=== PATIENT | female | born 1985 | race Caucasian/White ===

== ENCOUNTER 2023-04-01 12:11 | Emergency (ER) | payer OTHER, SELFPAY ==
[2023-04-01] VITALS (17 sets, daily range): BP systolic 61–116; BP diastolic 44–79; PULSE 75–100; BMI 29.2
--- NOTE | 2023-04-01 12:24 | ED.GENMED ---
History of Present Illness
<Neva Chan PA-C - Last Filed: 04/01/23 18:44>
General
Chief Complaint: Dizziness
Source: patient
Exam Limitations: none
Time Seen by Provider: 04/01/23 12:24
Nursing documentation reviewed up to this point in time: agreed with
History of Present Illness
History of Present Illness:
This is a 37-year-old female with past medical history of Palmer's palsy, opioid use disorder, serotonin syndrome, anxiety/depression who presents emergency department today with 2 episodes of dizziness. Currently, patient feels well and denies
dizziness, nausea, vomiting, headache, visual changes. She states that yesterday, she had an episode of dizziness when she was walking to class today and felt a bit faint and started to have decreased hearing when she fell forward and caught
herself and subsequently went to go sit down and felt better. The rest of the day she felt okay. Today, she was having a meeting with her counselor when she had another episode of dizziness and lightheadedness, and subsequently ate some crackers
and her symptoms improved. Patient counselor was concerned because she noticed that patient was repeating a lot of words so they subsequently called EMS.
Past History
<Neva Chan PA-C - Last Filed: 04/01/23 18:44>
Past History
Patient has exhibited threatening behavior?: No
Review of Systems
<Neva Chan PA-C - Last Filed: 04/01/23 18:44>
Review of Systems
All Other Systems: ROS reviewed and negative except as documented in HPI and ROS
Phy Exam
<Neva Chan PA-C - Last Filed: 04/01/23 18:44>
Physical Exam
Physical Exam:
General:Patient is well-appearing in no acute distress
Skin: Warm and dry, no rashes or lesions
HEENT: Eyes-- No nystagmus
Cardiac: Regular rate and rhythm, no murmurs
Pulm: Normal respiratory effort, no wheezes rales or rhonchi
Neurological: Patient is alert and oriented x 3. Patient does have left-sided facial droop which is her baseline with the Palmer's palsy. Cranial nerves II through XII intact. No involuntary movements. No new focal neurologic deficits.
Zoktnh-yy-[id number] testing, ydrt-[id number]-[id number] testing intact
Course
<Neva Chan PA-C - Last Filed: 04/01/23 18:44>
Orders/Labs/Results
Orders:
Orders
04/01/23 12:36
Test Result ONCE
04/01/23 12:38
Complete Blood Count/With Diff Urgent
04/01/23 12:43
Orthostatic VS- Treatment ONCE
04/01/23 12:56
0.9% Sodium Chloride 1000 ml [Nss] 1,000 ml IV BOLUS
04/01/23 13:10
Comprehensive Metabolic Panel Urgent
HCG, Serum Qualitative Screen Urgent
Abnormal Lab Results
04/01/23 04/01/23
12:38 13:10
RBC 3.95 L 10^6/uL
(4.20-5.40)
Hct 36.1 L %
(37.0-47.0)
MCH 31.6 H pg
(27.0-31.0)
Sodium 134 L mmol/L
(135-145)
Glucose 124 H mg/dl
(70-99)
Total Protein 6.2 L g/dl
(6.3-8.2)
04/01/23 12:38
04/01/23 13:10
Vital Signs
Initial and Last Documented VS:
Initial Vital Signs
Temp Pulse Resp BP Pulse Ox
97.9 F 87 17 85/52 95
04/01/23 12:14 04/01/23 12:14 04/01/23 12:14 04/01/23 12:14 04/01/23 12:14
Last Documented Vital Signs
Temp Pulse Resp BP Pulse Ox
97.9 F 71 15 100/65 96
04/01/23 12:14 04/01/23 16:31 04/01/23 16:31 04/01/23 16:30 04/01/23 15:46
je;Fermin Nava, - Last Filed: 04/01/23 19:41>
Orders/Labs/Results
Orders:
Orders
04/01/23 12:36
Test Result ONCE
04/01/23 12:38
Complete Blood Count/With Diff Urgent
04/01/23 12:43
Orthostatic VS- Treatment ONCE
04/01/23 12:56
0.9% Sodium Chloride 1000 ml [Nss] 1,000 ml IV BOLUS
04/01/23 13:10
Comprehensive Metabolic Panel Urgent
HCG, Serum Qualitative Screen Urgent
Abnormal Lab Results
04/01/23 04/01/23
12:38 13:10
RBC 3.95 L 10^6/uL
(4.20-5.40)
Hct 36.1 L %
(37.0-47.0)
MCH 31.6 H pg
(27.0-31.0)
Sodium 134 L mmol/L
(135-145)
Glucose 124 H mg/dl
(70-99)
Total Protein 6.2 L g/dl
(6.3-8.2)
04/01/23 12:38
04/01/23 13:10
Vital Signs
Initial and Last Documented VS:
Initial Vital Signs
Temp Pulse Resp BP Pulse Ox
97.9 F 87 17 85/52 95
04/01/23 12:14 04/01/23 12:14 04/01/23 12:14 04/01/23 12:14 04/01/23 12:14
Last Documented Vital Signs
Temp Pulse Resp BP Pulse Ox
97.9 F 71 15 100/65 96
04/01/23 12:14 04/01/23 16:31 04/01/23 16:31 04/01/23 16:30 04/01/23 15:46
<Neva Chan PA-C - Last Filed: 04/01/23 18:44>
MDM/Problems Addressed
Differential Diagnosis Includes:
Differentials include hypertension, hyponatremia, hypoglycemia, Suboxone side effects
MDM/Problems Addressed:
Dizziness
Chronic conditions affecting care:
Anxiety, depression, history of opioid use disorder
Acute Exacerbation and/or Progression of Chronic Illness:
n/a
<Neva Chan PA-C - Last Filed: 04/01/23 18:44>
*Pulse Oximetry
Patient hypoxic: no
*Critical Care Note
Total Time (30-74mins, 75-104mins- exclusive of procedures): Not Applicable
Data Reviewed
Review of Other/Old Records Reveals: Records (No previous records to review)
Prescriptions/Medications Considered But Not Given:
n/a
Further Testing Considered But Not Given:
N/A
<Neva Chan PA-C - Last Filed: 04/01/23 18:44>
Patient Management
Escalation/DeEscalation of care consider admission/obs:
This is a 37-year-old female with past medical history of opioid use disorder on Suboxone, anxiety, depression who presents today with concerns of 2 episodes of dizziness and presyncopal symptoms that occurred once today and once yesterday. Patient
states that during these events, she had to sit down and eat something eventually felt better. She had a appointment with her counselor who knows that patient was repeating many words and called EMS to send her to the emergency department. On
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 Patient's blood pressure upon presentation to the ED was 85/52. Patient states that she does feel occasionally dizzy when she stands.
Her orthostatics upon's standing, her heart rate increased and her blood pressure dropped by 20 mg of mercury. We started patient on IV fluids. Upon reassessment, her blood pressure increased to 100/65 patient states that she feels well and has
had no further episodes of dizziness. Currently feel that her episodes of dizziness are a result of her hypotension, likely from the use of Suboxone. I am not concerned for a cerebrovascular event. Advised patient to follow-up with her primary
care provider.
<Neva Chan PA-C - Last Filed: 04/01/23 18:44>
Update Note
Update Note:
2:10 pm--upon reevaluation, patient reports feeling well and improvement to her symptoms, will finish IV fluids and reassess
4:15 PM�patient's IV fluids were finished, patient states that she has not had any additional dizziness and patient states that she feels well.
ED Attending Note
<Neva Chan PA-C - Last Filed: 04/01/23 18:44>
-
Portions of this chart may have been created with voice recognition software.� Occasional wrong word or��sound alike� substitutions may have occurred due to the inherent limitations of voice recognition software.
<Fermin Nava DO - Last Filed: 04/01/23 19:41>
ED Attending Note
Patient seen and examined by attending physician: Yes
I performed the substantive portion of visit, reviewed & personally made and approve the management plan that is documented in note by myself or ERIK.: Yes
ED Attending Note:
I agree with hopemarylin note
Patient brought to the emergency room for evaluation of dizziness. Patient also seemed confused and had some repetitive speech during a therapy session.
Patient denies any headache. Denies any focal weakness numbness or tingling. Watching 'Game of [employer]Spot[employer]' on her phone at the time of my evaluation. Admits not drinking fluids or water very often
General: Awake, Alert, Oriented X3. No acute distress.
Vitals: Hypotensive
Head: Atraumatic
Eyes: Pupils equal, EOMI
Throat: Airway intact, no exudates
Neck: Trachea midline
Lungs: Clear and equal b/l
Heart: Regular rate, no murmurs
Abd: Soft, Nontender, No pulsatile mass
Neuro: Cranial nerves intact, muscle strength equal bilaterally, cerebellar exam normal
Skin: Warm, dry, no rash
Extremities: pulses equal b/l, no edema
Pt feeling better after ivf, no longer dizzy
Discharge Plan
Departure
Patient Disposition: Home (Routine Discharge)
Date of Disposition: 04/01/23
Time of Disposition: 16:29
Patient with high blood pressure during this ER visit?: No
Condition: Good
Discharge Problem:
Dizziness
Instructions: Low Blood Pressure (DC), Dizziness
Referrals:
PRIVATE,PHYSICIAN [Family Provider] -
Activity Restrictions/Additional Instructions:
Please follow-up with your primary care provider this week.
Please return emergency department should you experience repetitive difficulties with your speech, confusion, lightheadedness, syncopal episodes, worsening of your symptoms, or any other concerns.
Interventions
Interventions:
*Risk Screen - Suicide Last Done: 04/01/23 17:13
*General Assessment Last Done: 04/01/23 12:32
*Neglect/Abuse Screening Last Done: 04/01/23 12:32
ED- Fall Risk Assessment Last Done: 04/01/23 12:32
*ED COVID-19 Vaccine History Last Done: 04/01/23 12:32
*Nursing Disposition Last Done: 04/01/23 17:13
ED- Neurological Assessment Last Done: 04/01/23 12:32
ED- Cardiac Assessment Last Done: 04/01/23 12:32
ED Swallowing Screen Last Done: 04/01/23 14:13
Discharge Date and Time
Discharge Date/Time: 04/01/23 17:14
[2023-04-01 12:49] LABS: % Basophils 0.5 % (0-2); % Eosinophils 3.9 % (0-6); % Immature Granulocytes 0.3 % (0-0.5); % Lymphocytes 32.2 % (20.5-51.1); % Monocytes 6.9 % (1.7-9.3); % Neutrophils 56.2 % (42.2-75.2); Absolute Eosinophils 0.3 10^3/uL (0-0.7); Absolute Lymphocytes 2.4 10^3/uL (1.2-3.4); Absolute Monocytes 0.5 10^3/uL (0.1-0.6); Absolute Neutrophils 4.1 10^3/uL (1.4-6.5); Hematocrit 36.1 % (37.0-47.0); Hemoglobin 12.5 g/dL (12.0-16.0); Mean Corp Hgb Conc. 34.6 g/dL (33.0-37.0); Mean Corpuscular Hgb 31.6 pg (27.0-31.0); Mean Corpuscular Volume 91.4 fL (81.0-99.0); Mean Platelet Volume 9.1 fL (7.4-10.4); Nucleated Red Blood Cells % 0 %; Platelet Count 275 10^3/uL (130-400); Red Blood Cell Count 3.95 10^6/uL (4.20-5.40); Red Cell Dist. Width 12.3 % (11.5-14.5); White Blood Cell Count 7.4 10^3/uL (4.8-10.8)
[2023-04-01] MEDS: NSS 1000 IV (13:11)
[2023-04-01 13:29] LABS: HCG, Serum Qualitative Screen Negative
[2023-04-01 13:33] LABS: ALT (SGPT) 20 U/L (0-35); AST (SGOT) 31 U/L (14-36); Albumin 3.6 g/dl (3.5-5.0); Alkaline Phosphatase 85 U/L (38-126); Blood Urea Nitrogen 8 mg/dl (7-17); Calcium 8.5 mg/dl (8.4-10.2); Carbon Dioxide 26 mmol/L (22-30); Chloride 104 mmol/L (98-107); Estimated Creatinine Clearance > 125 ml/min; Glucose 124 mg/dl (70-99); Potassium 3.8 mmol/L (3.5-5.1); Sodium 134 mmol/L (135-145); Total Bilirubin 0.4 mg/dl (0.2-1.3); Total Protein 6.2 g/dl (6.3-8.2); eGFR > 60.00
== END 2023-04-01 17:14 | disposition home or self-care (01) ==
LOC: EMR 12:11
PROVIDERS: Physician Assistant; EMERGENCY PHYSICIAN Emergency Medicine
DX: R42 Dizziness and giddiness (principal); F41.9 Anxiety disorder, unspecified; F32.A Depression, unspecified
CPT/HCPCS: 99284; 96360; 80053; 84703; 85025